=== PATIENT | female | born 1955 | race Caucasian/White ===

== ENCOUNTER 2018-10-05 06:37 | Day surgery (SDC) | payer OTHER ==
[~2018-10-05] VITALS: Ht 165.1 cm; Wt 51.3 kg
[2018-10-05] VITALS (11 sets, daily range): BP systolic 113–146; BP diastolic 63–92
--- OUTSIDE RECORDS SUMMARY | 2018-10-05 06:42 | XMS REPORT ---
Author Author BHARATI JENSEN [facility] Address [address] [place] [address] Care Team Providers Care Wood Preserving Plant Laborer Name Role Phone JENI JENSENTA Unavailable PROBLEMS Type Condition ICD9-CM Code THU80-[id number] Code Onset Dates Condition Status SNOMED Code Problem Hyperlipidemia, unspecified hyperlipidemia type E78.5 Active 87236121 Problem Seasonal allergies J30.2 Active 632184025 ALLERGIES No Known Allergies ENCOUNTERS Encounter Location Date Diagnosis [facility] [id number] [place] [address] Sep, [facility] [id number] [place] [address] 21016- 9464 Jul, [facility] [id number] [place] [address] 44326- 5016 Jul, Hyperlipidemia, unspecified hyperlipidemia type E78.5 [facility] [id number] [place] [address] 23571- 3880 26 Jun, 2018 Elevated blood pressure reading R03.0 ; Screening for diabetes mellitus Z13.1 ; Screening for thyroid disorder Z13.29 ; Dyspnea on exertion R06.09 and Positive depression screening Z13.89 [facility] [address] [place] [address]209 Jun, Seasonal allergies J30.2 [facility] [id number] [place] [address] 39634- 6740 Jan, [facility] [id number] [place] [address] 72580- 4186 Jan, [facility] [id number] [phone] Apr, [facility] [id number] [place] [id number] Dec, [facility] [address] [id number] [place] [id number] Nov, IMMUNIZATIONS No Known Immunizations SOCIAL HISTORY Never Assessed REASON FOR VISIT Establish [facility] PLAN OF CARE Activity Details Follow Up 2 Weeks Reason:depression VITAL SIGNS Height 65 in 2018-07-14 Weight 121.8 lbs 2018-07-14 Temperature 97.2 degrees Fahrenheit 2018-07-14 Heart Rate 114 bpm 2018-07-14 Respiratory Rate 18 2018-07-14 BMI 20.27 kg/m2 2018-07-14 Blood pressure systolic 142 mmHg 2018-07-14 Blood pressure diastolic 84 mmHg 2018-07-14 MEDICATIONS Medication Instructions Dosage Frequency Start Date End Date Duration Status Aspirin 325 MG Orally Once a day 1 tablet 24h 30 day(s) Active Anna-Dunbar [phone] MG Orally Twice a day 2 tablets as needed 12h Active RESULTS No Results PROCEDURES Procedure Date Ordered Result Body Site EKG, TRACING (IN-HOUSE) 2018-07-14 Normal COMPLETE CBC W/AUTO DIFF WBC Jul 14, 2018 X-RAY EXAM CHEST 2 VIEWS Jul 14, 2018 ELECTROCARDIOGRAM, TRACING Jul 14, 2018 VENIPUNCT, ROUTINE* Jul 14, 2018 ASSAY THYROID STIM HORMONE Jul 14, 2018 COMPREHEN METABOLIC PANEL Jul 14, 2018 LIPID PANEL Jul 14, 2018 INSTRUCTIONS MEDICATIONS ADMINISTERED No Known Medications MEDICAL (GENERAL) HISTORY Type Description Date Medical History Allergic rhinitis, cause unspecified Medical History Allergic rhinitis, cause unspecified Medical History Dyspepsia and other specified disorders of function of stomach Surgical History left index finger 1998 Hospitalization History Kidney stones 2008
--- OUTSIDE RECORDS SUMMARY | 2018-10-05 06:42 | XMS REPORT ---
Author Author BHARATI JENSEN [facility] Address [address] [place] [address] Care Team Providers Care Cancer Registrar Name Role Phone JENI JENSENTA Unavailable PROBLEMS Type Condition ICD9-CM Code [id number]-[id number] Code Onset Dates Condition Status SNOMED Code Problem Hyperlipidemia, unspecified hyperlipidemia type E78.5 Active 19105099 Problem Gastric reflux K21.9 Active 831229131 Problem Seasonal allergies J30.2 Active 888055906 ALLERGIES No Information ENCOUNTERS Encounter Location Date Diagnosis [place] [address] [address] Sep, [facility] [address] [address] Jul, Dyspnea on exertion R06.09 [facility] [address] [address] Jul, Dyspnea on exertion R06.09 [place] [address] 9[address] Jul, Hyperlipidemia, unspecified hyperlipidemia type E78.5 ; Gastric reflux K21.9 and Seasonal allergies J30.2 [facility] [address] [address] Jul, Hyperlipidemia, unspecified hyperlipidemia type E78.5 [facility] [address] 67[address]- [address] Jun, Elevated blood pressure reading R03.0 ; Screening for diabetes mellitus Z13.1 ; Screening for thyroid disorder Z13.29 ; Dyspnea on exertion R06.09 and Positive depression screening Z13.89 [facility] [id number] [place] [address]64 -1085 Jun, Seasonal allergies J30.2 [facility] [address] [facility] [id number] [place] [address] Jan, [facility] [address] [facility] [id number] [place] [address] Jan, [facility] [address] [id number] [phone] Apr, [facility] [id number] [id number] Dec, [facility] [address] [id number] [id number] Nov, IMMUNIZATIONS No Known Immunizations SOCIAL HISTORY Never Assessed REASON FOR VISIT PFT Cece MAKI PLAN OF CARE VITAL SIGNS Height 65 in 2018-08-11 Weight 124 lbs 2018-08-11 Heart Rate 120 bpm 2018-08-11 Respiratory Rate 22 2018-08-11 Oximetry 98 % 2018-08-11 BMI 20.63 kg/m2 2018-08-11 Blood pressure systolic 102 mmHg 2018-08-11 Blood pressure diastolic 66 mmHg 2018-08-11 MEDICATIONS Unknown Medications RESULTS No Results PROCEDURES Procedure Date Ordered Result Body Site PULMONARY FUNCTION TEST (IN-HOUSE) 2018-08-11 N/A SPIROMETRY Aug 11, 2018 INSTRUCTIONS MEDICATIONS ADMINISTERED No Known Medications MEDICAL (GENERAL) HISTORY Type Description Date Medical History Allergic rhinitis, cause unspecified Medical History Allergic rhinitis, cause unspecified Medical History Dyspepsia and other specified disorders of function of stomach Surgical History left index finger 1998 Hospitalization History Kidney stones 2008
--- OUTSIDE RECORDS SUMMARY | 2018-10-05 06:42 | XMS REPORT ---
Author Author BHARATI JENSEN [facility] Address [address] [place] [address] Care Team Providers Care Tube Bending Machine Operator Name Role Phone JENI JENSENTA Unavailable PROBLEMS Type Condition ICD9-CM Code [id number]-[id number] Code Onset Dates Condition Status SNOMED Code Problem Hyperlipidemia, unspecified hyperlipidemia type E78.5 Active 44569586 Problem Gastric reflux K21.9 Active 113297866 Problem Seasonal allergies J30.2 Active 642478934 ALLERGIES No Information ENCOUNTERS Encounter Location Date Diagnosis [place] [address] [address] Sep, [facility] [address] [address] Jul, [facility] [address] [address]- [address] Jul, Dyspnea on exertion R06.09 [facility] [address] [address]- [address] Jul, Hyperlipidemia, unspecified hyperlipidemia type E78.5 ; Gastric reflux K21.9 and Seasonal allergies J30.2 [facility] [address] 24[address]- [address] Jul, Hyperlipidemia, unspecified hyperlipidemia type E78.5 [facility] [address] [address] 26 Jun, 2018 Elevated blood pressure reading R03.0 ; Screening for diabetes mellitus Z13.1 ; Screening for thyroid disorder Z13.29 ; Dyspnea on exertion R06.09 and Positive depression screening Z13.89 [facility] [id number] [place] [address] 17 Jun, 2018 Seasonal allergies J30.2 [facility] [address] [facility] [id number] [place] [address] Jan, [facility] [address] [id number] [address] Jan, [address] [id number] Apr, [address] [phone] Dec, [address] [id number] Nov, IMMUNIZATIONS No Known Immunizations SOCIAL HISTORY Never Assessed REASON FOR VISIT PLAN OF CARE VITAL SIGNS MEDICATIONS Unknown Medications RESULTS No Results PROCEDURES No Known procedures INSTRUCTIONS MEDICATIONS ADMINISTERED No Known Medications MEDICAL (GENERAL) HISTORY Type Description Date Medical History Allergic rhinitis, cause unspecified Medical History Allergic rhinitis, cause unspecified Medical History Dyspepsia and other specified disorders of function of stomach Surgical History left index finger 1998 Hospitalization History Kidney stones 2008
--- OUTSIDE RECORDS SUMMARY | 2018-10-05 06:42 | XMS REPORT ---
Author Author KING BHARATI [facility] Address [address] [place] [address] Care Team Providers Care Commercial Development Manager Name Role Phone BHARATI JENSEN Unavailable PROBLEMS Type Condition ICD9-CM Code DRA08-EV Code Onset Dates Condition Status SNOMED Code Problem Hyperlipidemia, unspecified hyperlipidemia type E78.5 Active 13411159 Problem Gastric reflux K21.9 Active 450476923 Problem Seasonal allergies J30.2 Active 894409920 Problem Chronic obstructive pulmonary disease, unspecified COPD type J44.9 Active 57020638 ALLERGIES No Information ENCOUNTERS Encounter Location Date Diagnosis [place] [address] [address] Sep, [place] [address] [address]- [address] Jul, [place] [address] [address] Jul, Dyspnea on exertion R06.09 [place] [address] [address]- [address] Jul, Dyspnea on exertion R06.09 [place] [address] [address] Jul, Hyperlipidemia, unspecified hyperlipidemia type E78.5 ; Gastric reflux K21.9 and Seasonal allergies J30.2 [place] [address] [address]- [address] Jul, Hyperlipidemia, unspecified hyperlipidemia type E78.5 [place] [address] [address]- [address] Jun, Elevated blood pressure reading R03.0 ; Screening for diabetes mellitus Z13.1 ; Screening for thyroid disorder Z13.29 ; Dyspnea on exertion R06.09 and Positive depression screening Z13.89 [facility] [address] [place] [address] 17 Jun, 2018 Seasonal allergies J30.2 [facility] [address] [id number] [address] Jan, [facility] [address]100[place] [address] Jan, [facility] [address] [place] [id number] Apr, [address] [place] [phone] Dec, [address] [phone] Nov, IMMUNIZATIONS No Known Immunizations SOCIAL HISTORY Never Assessed REASON FOR VISIT PFT Result PLAN OF CARE VITAL SIGNS MEDICATIONS Medication Instructions Dosage Frequency Start Date End Date Duration Status ProAir HFA 108 (90 Base) MCG/ACT Inhalation every 4-6 hrs 2 puffs as needed Jul, Active Spiriva HandiHaler 18 MCG Inhalation Once a day 1 capsule (2 puffs) 24h Jul, Active RESULTS No Results PROCEDURES No Known procedures INSTRUCTIONS MEDICATIONS ADMINISTERED No Known Medications MEDICAL (GENERAL) HISTORY Type Description Date Medical History Allergic rhinitis, cause unspecified Medical History Allergic rhinitis, cause unspecified Medical History Dyspepsia and other specified disorders of function of stomach Surgical History left index finger 1998 Hospitalization History Kidney stones 2008
--- OUTSIDE RECORDS SUMMARY | 2018-10-05 06:42 | XMS REPORT ---
Author Author GUS BOB [facility] Address [address] [place] [address] Care Team Providers Care Boarding House Manager Name Role Phone GUS OBB Unavailable PROBLEMS Type Condition ICD9-CM Code DSP38-YH Code Onset Dates Condition Status SNOMED Code Problem Hyperlipidemia, unspecified hyperlipidemia type E78.5 Active 67171125 Problem Seasonal allergies J30.2 Active 139300379 ALLERGIES No Known Allergies ENCOUNTERS Encounter Location Date Diagnosis [facility] [id number] [place] [address]- [address] Sep, [facility] [id number] [place] [address] 45743- 4883 Jul, [facility] [id number] [place] [address] 33784- 1673 Jul, Hyperlipidemia, unspecified hyperlipidemia type E78.5 [facility] [id number] [place] [address]- [address] 26 Jun, 2018 Elevated blood pressure reading R03.0 ; Screening for diabetes mellitus Z13.1 ; Screening for thyroid disorder Z13.29 ; Dyspnea on exertion R06.09 and Positive depression screening Z13.89 [facility] [address] [place] [address] -[address] 17 Jun, 2018 Seasonal allergies J30.2 [facility] [id number] [place] [address] 81624- [address] Jan, [facility] [id number] [place] [address] 89847- 8142 Jan, [facility] [address] [id number] [id number] Apr, [facility] [address] [id number] [place] [phone] Dec, [facility] [address] [facility] [id number] [place] [phone] Nov, IMMUNIZATIONS No Known Immunizations SOCIAL HISTORY Never Assessed REASON FOR VISIT shortness of breath/weakness/cough for 3 days. [email or web address] PLAN OF CARE Activity Details Follow Up keep scheduled establish care appt Reason: VITAL SIGNS Height 65 in 2018-07-05 Weight 116.8 lbs 2018-07-05 Temperature 97.9 degrees Fahrenheit 2018-07-05 Heart Rate 96 bpm 2018-07-05 Respiratory Rate 20 2018-07-05 Oximetry on room air:100 % 2018-07-05 BMI 19.43 kg/m2 2018-07-05 Blood pressure systolic 110 mmHg 2018-07-05 Blood pressure diastolic 62 mmHg 2018-07-05 MEDICATIONS Medication Instructions Dosage Frequency Start Date End Date Duration Status Wilfredo [phone] MG Orally Twice a day 2 tablets as needed 12h Active Aspirin 325 MG Orally Once a day 1 tablet 24h 30 day(s) Active RESULTS No Results PROCEDURES No Known procedures INSTRUCTIONS MEDICATIONS ADMINISTERED No Known Medications MEDICAL (GENERAL) HISTORY Type Description Date Medical History Allergic rhinitis, cause unspecified Medical History Allergic rhinitis, cause unspecified Medical History Dyspepsia and other specified disorders of function of stomach Surgical History left index finger 1998 Hospitalization History Kidney stones 2008
--- OUTSIDE RECORDS SUMMARY | 2018-10-05 06:42 | XMS REPORT ---
Author Author BHARATI JENSEN [facility] Address [address] [place] [address] Care Team Providers Care Feeder Driver Name Role Phone JENI JENSENTA Unavailable PROBLEMS Type Condition ICD9-CM Code UOE14-YM Code Onset Dates Condition Status SNOMED Code Problem Hyperlipidemia, unspecified hyperlipidemia type E78.5 Active 50141713 Problem Seasonal allergies J30.2 Active 581850245 ALLERGIES No Information ENCOUNTERS Encounter Location Date Diagnosis [facility] [id number] [place] [address] Sep, [facility] [id number] [place] [address]858- [address] Jul, [facility] [id number] [place] [address]149- [address] Jul, Hyperlipidemia, unspecified hyperlipidemia type E78.5 [facility] [id number] [place] [address] 6[address]20- 4806 26 Jun, 2018 Elevated blood pressure reading R03.0 ; Screening for diabetes mellitus Z13.1 ; Screening for thyroid disorder Z13.29 ; Dyspnea on exertion R06.09 and Positive depression screening Z13.89 [facility] [id number] [place] [address] -[address] Jun, Seasonal allergies J30.2 [facility] [address] [place] [address]- [address] Jan, [facility] [id number] [place] [address]20- [address] Jan, [facility] [address] [id number] Apr, [facility] [id number] [place] [phone] Dec, [facility] [address] [id number] [place] [phone] Nov, IMMUNIZATIONS No Known Immunizations SOCIAL HISTORY Never Assessed REASON FOR VISIT repository rx PLAN OF CARE VITAL SIGNS MEDICATIONS Medication Instructions Dosage Frequency Start Date End Date Duration Status Pravastatin Sodium 10 mg Orally Once a day 2 tablet 24h Jul, 90 days Active RESULTS No Results PROCEDURES No Known procedures INSTRUCTIONS MEDICATIONS ADMINISTERED No Known Medications MEDICAL (GENERAL) HISTORY Type Description Date Medical History Allergic rhinitis, cause unspecified Medical History Allergic rhinitis, cause unspecified Medical History Dyspepsia and other specified disorders of function of stomach Surgical History left index finger 1998 Hospitalization History Kidney stones 2008
[2018-10-05] MEDS ORDERED: HEParin (CATH LAB) 2,000 ML IV ONE (06:50)
[2018-10-05] MEDS ORDERED: NS IV 1000 ML 1,000 ML ONE (06:50)
[2018-10-05] MEDS ORDERED: LIDOCAINE 1% INJ 20 ML 20 ML VIAL ONE (06:50)
[2018-10-05] MEDS ORDERED: NS IV 1000 ML 1,000 ML IV SCH ×2 (07:00→09:37)
[2018-10-05 07:13] LABS: HEMOGLOBIN 15.1 G/DL (11.5-16.0); MEAN PLATELET VOLUME 9.9 FL (7.4-10.4); RED BLOOD COUNT 4.38 10^6/uL (4.35-5.85); RED CELL DISTRIBUTION WIDTH 14.4 % (10.0-14.5); WHITE BLOOD COUNT 11.5 10^3/uL (4.3-11.0)
[2018-10-05] MEDS ORDERED: ASPI-983 PO (07:19)
[2018-10-05 07:25] LABS: PROTHROMBIN TIME PATIENT 12.7 SEC (12.2-14.7)
[2018-10-05] MEDS ORDERED: fentaNYL INJECTION 100 MCG/2 ML AMP ONE (07:31)
[2018-10-05] MEDS ORDERED: MIDAZOLAM 5 MG/5 ML (VERSED) VIAL ONE (07:31)
[2018-10-05 07:34] LABS: ALANINE AMINOTRANSFERASE 42 U/L (0-55); ALBUMIN 4.3 GM/DL (3.2-4.5); ALKALINE PHOSPHATASE 121 U/L (40-136); BILIRUBIN,TOTAL 0.7 MG/DL (0.1-1.0); BUN/CREATININE RATIO 16; CALCIUM 9.8 MG/DL (8.5-10.1); CARBON DIOXIDE 22 MMOL/L (21-32); CHLORIDE 103 MMOL/L (98-107); CHOLESTEROL 294 MG/DL (< 200); CREATININE SERUM 0.62 MG/DL (0.60-1.30); GFR ESTIMATED > 60; GLUCOSE 98 MG/DL (70-105); HDL CHOLESTEROL 38 MG/DL (40-60); POTASSIUM 3.7 MMOL/L (3.6-5.0); SODIUM 138 MMOL/L (135-145); TRIGLYCERIDES 265 MG/DL (<150); VLDL CHOLESTEROL 53 MG/DL (5-40)
[2018-10-05] MEDS ORDERED: FLU QUADRIvalent (5+ YOA) 2018-2019 (AFLURIA) 0.5 ML IM ONE (07:45)
[2018-10-05] MEDS ORDERED: HEParin 1000 UNIT/ML (10ML VIAL) FOR BOLUS ONE (09:01)
[2018-10-05] MEDS ORDERED: ADENOSINE 3 MG/1 ML (ADENOSCAN) 30ML VIAL IV ONE (09:01)
--- NOTE | 2018-10-05 09:37 | Cardiac Procedure Note-CS/ASA ---
Pre-Procedure Note Pre-Op Procedure Note H&P Reviewed The H&P was reviewed, patient examined and no changes noted. Date H&P Reviewed: Oct 05, 2018 Time H&P Reviewed: 08:45 Conscious Sedation Pre-Proced Time 08:45 ASA Score 3 For ASA 3 and 4: Consider anesthesia and medical clearance. Also, for patients with a history of failed moderate sedation consider anesthesia. Airway Lungs Heart ASA score ASA 1: a normal healthy patient ASA 2: a patient with a mild systemic disease (mid diabetes, controlled hypertension, obesity ASA 3: a patient with a severe systemic disease that limits activity (angina , COPD, prior Myocardial infarction) ASA 4: a patient with an incapacitating disease that is a constant threat to life (CHF, renal failure) ASA 5: a moribund patient not expected to survive 24 hrs. (ruptured aneurysm) ASA 6: a declared brain patient whose organs are being harvested. For emergent operations, add the letter E after the classification Mallampati Classification Grade 2 Sedation Plan Analgesia, Amnesia, Plan communicated to team members, Discussed options with patient/fam, Discussed risks with patient/fam The patient is an appropriate candidate to undergo the planned procedure, sedation, and anesthesia. The patient immediately re-assessed prior to indication. BLANCHE DAWSON MD FACP FAC CCDS Oct 05, 2018 09:37
[2018-10-05] MEDS ORDERED: PRAV40TA2 PO (09:42)
--- NOTE | 2018-10-05 09:44 | Discharge Inst-Cardiology ---
Discharge Inst-Cardiac Discharge Medications New Medications: Pravastatin Sodium (Pravastatin Sodium) 40 Mg Tablet 40 MG PO DAILY for 30 Days, #30 TAB 2 Refills Continued Medications: Aspirin (Aspirin EC) 81 Mg Tablet. 81 MG PO DAILY, TAB Patient Instructions Patient Instructions: NO SMOKING OR TOBACCO USE BLANCHE DAWSON MD FACP FAC CCDS Oct 05, 2018 09:44
[2018-10-05] MEDS ORDERED: PATIENT MAY USE OWN MEDS, ALL PO SCH (09:45)
--- NOTE | 2018-10-05 09:45 | Discharge Inst-Post CATH ---
Discharge Inst-CATH Post Cardiac Cath D/C Inst Follow Up/Plan F/u with Dr Dasilva in 3-4 weeks CARDIAC CATH DISCHARGE INSTRUCTIONS *Hold Metformin for 48 hours post heart cath. ACTIVITY * Go Home directly and rest. * Limit activity of the leg (or wrist if it was used) for 7 days including aerobics, swimming, jogging, bicycling, etc. * Restrict stair-climbing for 7 days if possible, if not, climb up with your non -cath leg, then bring together on the same step. * Avoid lifting, pushing, pulling or excessive movement of the affected extremity for 7 days. * Customary sexual activity may be resumed after 2 days-use caution not to use a position that strains or causes pain to the affected extremity. * No driving for 24 hours. * NO SMOKING. * Avoid straining for bowel movements for 7 days. * Gentle walking on level ground is allowed. * Returning to work will depend on the type of procedure and the results. Your doctor will discuss this with you. CALL YOUR DOCTOR FOR ANY OF THE FOLLOWING: *If bleeding from the puncture site occurs- Apply gentle pressure to site with clean cloth and call your doctor or EMS. * If a knot or lump forms under the skin, increases in size, or causes pain. * If bruising appears to be worsening or moving further down your leg instead of disappearing. * Temperature above 101 F. CARE OF YOUR GROIN INCISION; * Bruising or purple discoloration of the skin near the puncture site is common. * You may shower only, no bathtub bathing for 5 days. Be careful to avoid slipping as your leg may feel stiff. * If a closure device was used on your femoral artery, please see the attached guide regarding care of the device and your leg. * Leave the dressing on, until removed by office staff. CARE OF YOUR WRIST INCISION; * Bruising or purple discoloration of the skin near the puncture site is common. * You may shower. * DO NOT submerge wrist. * Leave dressing on, until removed by office staff.. BLANCHE DASILVA MD [facility] CCDS Oct 05, 2018 09:45
--- NOTE | 2018-10-05 10:51 | CARDIAC CATHETERIZATION ---
DATE OF SERVICE: CARDIAC CATHETERIZATION REPORT HISTORY OF PRESENT ILLNESS: The patient is a 63-year-old lady with multiple coronary artery disease risk factors and symptoms that are consistent with exertional angina. She has also had one episode of syncope a few weeks ago. Cardiac catheterization was recommended and carried out today after having obtained informed consent. DESCRIPTION OF PROCEDURE: She was brought to the cardiac catheterization laboratory in a fasting state. Right groin was prepared and draped in the usual sterile fashion. Lidocaine 1% was used for local anesthesia. Modified Seldinger technique was used to advance a 5-American sheath into right femoral artery, 5-American JL3.5 catheter was used for left coronary angiography. A 5-American JR4 catheter was used for right coronary angiography. A 5-American pigtail catheter was used for left heart catheterization, left ventricular angiography. FRACTIONAL FLOW RESERVE MEASUREMENT IN THE RIGHT CORONARY ARTERY: Following completion of the diagnostic procedure, we carried out fractional flow reserve measurement in the right coronary artery where the patient had a long up to a 50% to 60% stenosis. We exchanged the sheath over a wire for a 6-American sheath. We gave 4000 units of intravenous heparin. We used a 6-American JR4 guide catheter with side holes. We advanced a pressure wire across the lesions in the right coronary artery and the tip of the wire was placed in the distal vessel. We gave adenosine infusion 140 mcg per kilogram per minute for more than 2 minutes. Fractional flow reserve was measured at 0.87, indicating hemodynamic nonsignificance of the lesions. The wire was removed. Angiography of the right coronary artery was repeated. The right coronary artery status remains unchanged following the procedure. The guide catheter was removed. Angiography of the right femoral artery was carried out through the sheath. Mynx was used to achieve hemostasis. She tolerated the procedure well. HEMODYNAMICS: Left ventricular end-diastolic pressure following coronary angiography was 5 mmHg. There was no significant pressure gradient on pullback across the aortic valve. Ascending aortic pressure was 92/58 with a mean of 70 mmHg. CORONARY ANGIOGRAPHY: Left main coronary artery exhibits calcification. Left anterior descending and left circumflex artery is also exhibit proximal calcification. There is mild to moderate diffuse disease of the left coronary system. There does not appear to be significant focal stenoses. The right coronary artery is dominant. It has calcification throughout its proximal and mid portions. There is 50% to 60% stenosis in its proximal and mid portions. The fractional flow reserve across all of these lesions is 0.87, indicating that these are not hemodynamically significant lesions. LEFT VENTRICULAR ANGIOGRAPHY: Left ventricular angiography was carried out in the right anterior oblique projection. Global left ventricular systolic function is normal. No regional wall motion abnormalities are seen. Left ventricular ejection fraction is approximately 65%. There does not appear to be significant mitral regurgitation. CONCLUSIONS: 1. Angiographically moderate coronary artery disease. The right coronary artery has a long 50% to 60% stenosis with a fractional flow reserve of 0.87. 2. Normal global left ventricular systolic function with an ejection fraction approximately 65%. 3. Normal left ventricular end-diastolic pressure. DISCUSSION AND RECOMMENDATIONS: Based on the results of the study, it appears appropriate to continue a conservative approach. Risk factor modification has been discussed with her. Outpatient followup is advised. Job ID: [id number] DocumentID: [id number] Dictated Date: 10/05/2018 09:29:10 Film Numberer Date: 10/05/2018 10:50:55 Dictated By: BLANCHE DAWSON MD, MA, FACP, FACC, MTDD
== END 2018-10-05 13:40 | disposition home or self-care (01) ==
LOC: CATH 06:37 → SDC 09:51 → CATH 13:40
PROVIDERS: ATTEND Internal Medicine Cardiovascular Disease
DX: I25.10 Atherosclerotic heart disease of native coronary artery without angina pectoris (principal); R06.09 Other forms of dyspnea; R55 Syncope and collapse; I73.9 Peripheral vascular disease, unspecified; R00.2 Palpitations; E78.5 Hyperlipidemia, unspecified; F17.210 Nicotine dependence, cigarettes, uncomplicated; Z82.49 Family history of ischemic heart disease and other diseases of the circulatory system; Z79.82 Long term (current) use of aspirin; Z79.899 Other long term (current) drug therapy
CPT/HCPCS: 36415; 80053; 80061; 85027; 85610; 85730; 87081; 93458